=== PATIENT | female | born 1965 | race Caucasian/White ===

== ENCOUNTER 2016-08-10 14:18 | Emergency (ER) | payer MEDICAID | END 2016-08-10 17:49 | disposition left against medical advice (07) | LOC: C.ER 14:18 | DX: R51 Headache (principal); Z02.9 Encounter for administrative examinations, unspecified ==

== ENCOUNTER 2017-09-20 16:54 | Emergency (ER) | payer MEDICAID ==
--- NOTE | 2017-09-20 17:56 | RAD ---
PROCEDURE: CHEST RADIOGRAPH, 1 VIEW HISTORY: Chest pain COMPARISON: None available. FINDINGS: LUNGS: The lungs are well inflated and clear. PLEURA: No pneumothorax or pleural fluid seen. CARDIOVASCULAR: Normal. OSSEOUS STRUCTURES: No significant abnormalities. VISUALIZED UPPER ABDOMEN: Normal. OTHER FINDINGS: None. IMPRESSION: No active pulmonary disease.
[2017-09-20 18:08] LABS: BASO # 0.1 K/uL (0.0-0.2); BASO % 0.8 % (0.0-2.0); EOS # 0.2 K/uL (0.0-0.7); EOS % 3.4 % (0.0-4.0); HEMOGLOBIN 13.2 g/dL (11.0-16.0); LYMPH # 2.7 K/uL (1.0-4.3); LYMPH % 43.7 % (20.0-40.0); MEAN CELL VOLUME 87.1 fL (81.0-99.0); MEAN CORPUSCULAR HEMOGLOBIN 29.3 pg (27.0-31.0); MEAN CORPUSCULAR HGB CONC 33.7 g/dL (33.0-37.0); MEAN PLATELET VOLUME 8.4 fL (7.2-11.7); MONO # 0.5 K/uL (0.0-0.8); MONO % 7.7 % (0.0-10.0); NEUT # 2.8 K/uL (1.8-7.0); NEUT % 44.4 % (50.0-75.0); NRBC % 0.1 % (0.0-2.0); RBC 4.49 Mil/uL (3.80-5.20); RED CELL DISTRIBUTION WIDTH 14.4 % (11.5-14.5); WHITE BLOOD COUNT 6.3 K/uL (4.8-10.8)
[2017-09-20] MEDS ORDERED: Sodium Chloride 0.9% 1,000 ML IV SCH (18:15)
[2017-09-20 18:18] LABS: ALB/GLOB RATIO 1.3 (1.0-2.1); ALBUMIN 4.5 g/dL (3.5-5.0); ALT/SGPT 39 U/L (9-52); AST/SGOT 26 U/L (14-36); BLOOD UREA NITROGEN 13 mg/dL (7-17); CALCIUM 9.2 mg/dl (8.6-10.4); GFR AFRICAN-AMERICAN > 60; GFR NON-AFRICAN AMERICAN > 60
[2017-09-20] MEDS ORDERED: Sodium Chloride 0.9% 1,000 ML ONE (18:36)
[2017-09-20 19:30] VITALS: BP 112/66; PULSE 80; RESP 16; TEMP 98.7; O2SAT 100
--- NOTE | 2017-09-20 21:21 | C.PDOC ---
History Of Present Illness 52 year old female, whose PMHx includes hypothyroidism, presents to the ED for evaluation of left shoulder and chest pain which began 3 days ago. Patient states her pain is sharp in nature and increased with movement. Patient also reports a dry cough. She denies fever, chills, shortness of breath and recent travel. Chief Complaint (Nursing): Chest Pain History Per: Patient History/Exam Limitations: no limitations Onset/Duration Of Symptoms: Days (3) Current Symptoms Are (Timing): Still Present Quality: Sharp, "Pain" Exacerbating Factors: Movement Recent travel outside of the [place]: No Additional History Per: Patient Past Medical History Reviewed: Historical Data, Nursing Documentation, Vital Signs Vital Signs: Last Vital Signs Temp 98.7 F 09/20/17 19:15 Pulse 80 09/20/17 19:15 Resp 16 09/20/17 19:15 BP 112/66 09/20/17 19:15 Pulse Ox 100 09/20/17 21:24 - Medical History PMH: Hypothyroidism Surgical History: Appendectomy Family History: States: Unknown Family Hx - Social History Hx Alcohol Use: No Hx Substance Use: No - Immunization History Hx Tetanus Toxoid Vaccination: No Hx Influenza Vaccination: No Review Of Systems Constitutional: Negative for: Fever, Chills Cardiovascular: Positive for: Chest Pain Respiratory: Positive for: Cough. Negative for: Sputum Musculoskeletal: Positive for: Shoulder Pain (left) Physical Exam - Physical Exam Appears: Non-toxic, No Acute Distress Skin: Normal Color, Warm, Dry Head: Atraumatic, Normacephalic Eye(s): bilateral: Normal Inspection Oral Mucosa: Moist Neck: Supple Chest: Symmetrical, No Deformity, No Tenderness Cardiovascular: Rhythm Regular, No Murmur Respiratory: Normal Breath Sounds, No Rales, No Rhonchi, No Wheezing Extremity: Normal ROM (left shoulder ), No Tenderness, Capillary Refill (less than 2 seconds ), No Deformity, No Swelling Neurological/Psych: Oriented x3, Normal Speech, Normal Cognition, Normal Sensation ED Course And Treatment - Laboratory Results Result Diagrams: 09/20/17 17:56 09/20/17 17:56 ECG: Interpreted By Me, Viewed By Me ECG Rhythm: Sinus Rhythm Interpretation Of ECG: Normal Sinus Rhythm at rate 61bpm. Normal axis and intervals. Rate From EC O2 Sat by Pulse Oximetry: 100 (on RA) Pulse Ox Interpretation: Normal - Other Rad CXR X-Ray: Interpreted by Me, Viewed By Me, Read By Radiologist Interpretation: PROCEDURE: CHEST RADIOGRAPH, 1 VIEW. HISTORY: Chest pain. COMPARISON: None available. FINDINGS: LUNGS: The lungs are well inflated and clear. PLEURA: No pneumothorax or pleural fluid seen. CARDIOVASCULAR: Normal. OSSEOUS STRUCTURES: No significant abnormalities. VISUALIZED UPPER ABDOMEN: Normal. OTHER FINDINGS: None. IMPRESSION: No active pulmonary disease. Medical Decision Making Medical Decision Making: Impression: 52 year old female with chest pain and left shoulder pain Plan: Bloodwork, CXR, EKG ordered and reviewed. Antivert PO, Toradol IVP and IV Fluids given. On re-examination, patient is resting comfortably, showing no signs of distress and reports an improvement in her symptoms. Patient is stable for discharge and is advised to follow up with her PMD within 3-4 days for further evaluation and/ or return to the ED if symptoms persist or worsen. Disposition - Disposition Referrals: Bipin Rucker MD [Staff Provider] - Disposition: HOME/ ROUTINE Disposition Time: 18:30 Condition: GOOD Additional Instructions: [place], thank you for letting us take care of you today. Your provider was Jesus Cárdenas DO. The emergency medical care you received today was directed at your acute symptoms. If you were prescribed any medication , please fill it and take as directed. It may take several days for your symptoms to resolve. Return to the Emergency Department if your symptoms worsen , do not improve, or if you have any other problems. Please contact your doctor or call one of the physicians/clinics you have been referred to that are listed on the Patient Visit Information form that is included in your discharge packet. Bring any paperwork you were given at discharge with you along with any medications you are taking to your follow up visit. Our treatment cannot replace ongoing medical care by a primary care provider outside of the emergency department. Thank you for allowing the [facility] team to be part of your care today. Follow up with your primary care doctor in 3-4 days for re-evaluation and further management. [place], sigrid por dejarnos atenderlo hoy. Araiza proveedor fue Jesus Cárdenas DO. La atencin mdica de emergencia que recibi hoy estaba dirigida a jessica sntomas agudos. Si le prescribieron algn medicamento, llnelo y tome seg n las indicaciones. Jessica sntomas pueden tardar varios aguilar en resolverse. Regrese al Departamento de Emergencia si jessica sntomas empeoran, no mejoran o si tiene algn otro problema. Comunquese con araiza mdico o llame a trinity de los mdicos / clnicas a los que bach sido referido que figura en el formulario de Informacin de visita del paciente que se incluye en araiza paquete de fox. Traiga todos los documentos que recibi al momento del fox junto con los medicamentos que est tomando en araiza visita de seguimiento. Nuestro tratamiento no puede reemplazar la atencin mdica en curso por un proveedor de atencin primaria fuera del departamento de emergencia. Sigrid por permitir que el equipo de [facility] sea parte de araiza cuidado hoy. South un seguimiento con araiza mdico de atencin primaria en 3-4 aguilar para rosie nueva evaluacin y rosie administracin posterior. Prescriptions: Ibuprofen [Motrin] 600 mg PO Q6 PRN #20 tab PRN Reason: Pain, Moderate (4-7) Meclizine [Meclizine*] 25 mg PO Q6 PRN #20 tab PRN Reason: Dizziness Instructions: Vertigo (a Type of Dizziness) (DC) Forms: Gen Discharge Inst Mongolian, [facility] (Mongolian) Print Language: BURKINAN - Clinical Impression Clinical Impression: Bronchitis - Scribe Statement The provider has reviewed the documentation as recorded by the Scribe (Glo Jara) Provider Attestation: All medical record entries made by the Scribe were at my direction and personally dictated by me. I have reviewed the chart and agree that the record accurately reflects my personal performance of the history, physical exam, medical decision making, and the department course for this patient. I have also personally directed, reviewed, and agree with the discharge instructions and disposition.
--- NOTE | 2017-09-21 17:14 | CARD ---
APPROVED REPORT EKG Measurement Heart [id number] <Conclusion> Normal sinus rhythm Nonspecific ST abnormality Abnormal ECG
== END 2017-09-20 19:15 | disposition home or self-care (01) ==
LOC: C.ER 16:54
DX: J40 Bronchitis, not specified as acute or chronic (principal); E03.9 Hypothyroidism, unspecified
CPT/HCPCS: 71045; 80053; 84484; 85025; 93005; 96361; 96374; 99285; J1885; J7030